=== PATIENT | female | born 1945 | race African-American/Black ===

== ENCOUNTER 2016-12-06 08:07 | Day surgery (SDC) | payer OTHER ==
[~2016-12-06] VITALS: Ht 160 cm; Wt 80.7 kg
[2016-12-06 08:50] VITALS: BP 120/74
[2016-12-06 13:53] VITALS: BP 124/69
== END 2016-12-06 12:25 | disposition home or self-care (01) ==
LOC: GI 08:07 → OR 12:30
PROVIDERS: Internal Medicine Gastroenterology
PROC: 0DJD8ZZ Inspection of Lower Intestinal Tract, Via Natural or Artificial Opening Endoscopic (ICD-10-PCS; principal; 2016-12-06 09:30)
DX: R19.4 Change in bowel habit (principal); R10.9 Unspecified abdominal pain
CPT/HCPCS: 45378; J1200; J1610; J2250; J2310; J3010; J3490

== ENCOUNTER → 2017-01-08 | Outpatient (CLI) | payer OTHER ==
[2017-01-08 08:48] LABS: BASOPHIL % 0.5 % (0-2); PLATELET COUNT 192 x10^3mcL (130-400)
[2017-01-08 08:50] LABS: ALKALINE PHOSPHATASE 86 U/L (46-116); ALT/SGPT 71 U/L (14-59); AST/SGOT 27 U/L (15-37); BILIRUBIN TOTAL 0.47 mg/dL (0.20-1.00); CALCIUM 9.4 mg/dL (8.5-10.1); CARBON DIOXIDE 26.4 mmol/L (21-32); CHLORIDE SERUM 101 mmol/L (98-107); CREATININE SERUM 0.7 mg/dL (0.6-1.0); FREE T4 1.09 ng/dL (0.76-1.46); GLUCOSE SERUM 121 mg/dL (74-106); POTASSIUM SERUM 4.5 mmol/L (3.5-5.1); SODIUM SERUM 136 mmol/L (136-145); TOTAL PROTEIN, SERUM 7.8 g/dL (6.4-8.2)
[2017-01-08 09:39] LABS: RED CELL DISTRIBUTION WIDTH 14.8 % (11.5-14.5)
== END | disposition home or self-care (01) ==
LOC: LB 08:06
DX: E11.9 Type 2 diabetes mellitus without complications (principal); E03.8 Other specified hypothyroidism; I10 Essential (primary) hypertension
CPT/HCPCS: 84439

== ENCOUNTER → 2017-02-21 | Outpatient (CLI) | payer OTHER | END | disposition home or self-care (01) | LOC: CT 09:19 | PROC: BN25ZZZ Computerized Tomography (CT Scan) of Facial Bones (ICD-10-PCS; principal; 2017-02-21) | PROC: BN26ZZZ Computerized Tomography (CT Scan) of Mandible (ICD-10-PCS; 2017-02-21) | DX: M27.69 Other endosseous dental implant failure (principal) ==

== ENCOUNTER → 2017-05-01 | Outpatient (CLI) | payer OTHER ==
[2017-05-01 12:57] LABS: URIC ACID 5.5 mg/dL (2.6-6.0)
[2017-05-01 13:11] LABS: C REACTIVE PROTEIN < 0.2 mg/dL (<=0.9)
== END | disposition home or self-care (01) ==
LOC: RD 11:19
PROVIDERS: Family Medicine
DX: S69.90XA Unspecified injury of unspecified wrist, hand and finger(s), initial encounter (principal); X58.XXXA Exposure to other specified factors, initial encounter; Y92.9 Unspecified place or not applicable

== ENCOUNTER → 2018-08-30 | Outpatient (CLI) | payer OTHER | END | disposition home or self-care (01) | LOC: LB 08:12 | DX: N39.46 Mixed incontinence (principal); N32.81 Overactive bladder; N31.8 Other neuromuscular dysfunction of bladder ==

== ENCOUNTER → 2019-06-07 | Outpatient (CLI) | payer OTHER ==
[2019-06-07 08:12] LABS: BASOPHIL % 0.6 % (0-2); PLATELET COUNT 182 x10^3mcL (130-400)
[2019-06-07 08:27] LABS: RED CELL DISTRIBUTION WIDTH 15.2 % (11.5-14.5)
[2019-06-07 08:40] LABS: ALBUMIN 3.8 g/dL (3.4-5.0); ALKALINE PHOSPHATASE 86 U/L (46-116); ALT/SGPT 48 U/L (14-59); AST/SGOT 21 U/L (15-37); BILIRUBIN TOTAL 0.4 mg/dL (0.20-1.00); CALCIUM 8.9 mg/dL (8.5-10.1); CARBON DIOXIDE 26.1 mmol/L (21-32); CHLORIDE SERUM 105 mmol/L (98-107); CHOLESTEROL 139 mg/dL (<200); CHOLESTEROL/HDL RATIO 2.6; CREATININE SERUM 0.7 mg/dL (0.6-1.0); HDL CHOLESTEROL 54 mg/dL (40-60); POTASSIUM SERUM 3.9 mmol/L (3.5-5.1); SODIUM SERUM 142 mmol/L (136-145); TOTAL PROTEIN, SERUM 7.6 g/dL (6.4-8.2); TRIGLYCERIDES 60 mg/dL (<150)
[2019-06-07 08:44] LABS: GLUCOSE SERUM 58 mg/dL (74-106)
== END | disposition home or self-care (01) ==
LOC: LB 07:47
DX: E11.9 Type 2 diabetes mellitus without complications (principal); E66.01 Morbid (severe) obesity due to excess calories; I10 Essential (primary) hypertension; E78.2 Mixed hyperlipidemia

== ENCOUNTER → 2019-09-10 | Outpatient (CLI) | payer OTHER | END | disposition home or self-care (01) | LOC: CT 08:36 | PROC: BW211ZZ Computerized Tomography (CT Scan) of Abdomen and Pelvis using Low Osmolar Contrast (ICD-10-PCS; principal; 2019-09-10) | DX: Z01.818 Encounter for other preprocedural examination (principal) | CPT/HCPCS: Q9967 ==

== ENCOUNTER → 2019-10-02 | Outpatient (CLI) | payer OTHER ==
[2019-10-02 09:14] LABS: PLATELET COUNT 179 x10^3mcL (130-400); RED CELL DISTRIBUTION WIDTH 15.1 % (11.5-14.5)
[2019-10-02 09:41] LABS: CHOLESTEROL/HDL RATIO 2.4
[2019-10-02 11:50] LABS: ALBUMIN 3.7 g/dL (3.4-5.0); ALKALINE PHOSPHATASE 70 U/L (46-116); ALT/SGPT 91 U/L (14-59); AST/SGOT 37 U/L (15-37); BILIRUBIN TOTAL 0.31 mg/dL (0.20-1.00); CALCIUM 9.2 mg/dL (8.5-10.1); CARBON DIOXIDE 25.2 mmol/L (21-32); CHLORIDE SERUM 105 mmol/L (98-107); CREATININE SERUM 0.6 mg/dL (0.6-1.0); FREE T4 1.12 ng/dL (0.76-1.46); GLUCOSE SERUM 116 mg/dL (74-106); POTASSIUM SERUM 4.1 mmol/L (3.5-5.1); SODIUM SERUM 140 mmol/L (136-145); TOTAL PROTEIN, SERUM 6.8 g/dL (6.4-8.2)
== END | disposition home or self-care (01) ==
LOC: LB 08:39
DX: E11.9 Type 2 diabetes mellitus without complications (principal); I10 Essential (primary) hypertension; E78.2 Mixed hyperlipidemia; E03.8 Other specified hypothyroidism; E66.01 Morbid (severe) obesity due to excess calories
CPT/HCPCS: 84439

== ENCOUNTER → 2019-11-01 | Outpatient (CLI) | payer OTHER | END | disposition home or self-care (01) | LOC: LB 09:29 | DX: N32.81 Overactive bladder (principal); N31.8 Other neuromuscular dysfunction of bladder; N39.46 Mixed incontinence ==

== ENCOUNTER → 2019-11-08 | Outpatient (CLI) | payer OTHER ==
[2019-11-08 08:46] LABS: ALBUMIN 4.1 g/dL (3.4-5.0); ALKALINE PHOSPHATASE 76 U/L (46-116); ALT/SGPT 63 U/L (14-59); AST/SGOT 24 U/L (15-37); BILIRUBIN TOTAL 0.5 mg/dL (0.20-1.00); CALCIUM 9.5 mg/dL (8.5-10.1); CARBON DIOXIDE 23.6 mmol/L (21-32); CHLORIDE SERUM 104 mmol/L (98-107); CREATININE SERUM 0.9 mg/dL (0.6-1.0); GLUCOSE SERUM 75 mg/dL (74-106); POTASSIUM SERUM 4.2 mmol/L (3.5-5.1); SODIUM SERUM 137 mmol/L (136-145); TOTAL PROTEIN, SERUM 7.8 g/dL (6.4-8.2)
== END | disposition home or self-care (01) ==
LOC: US 07:47
DX: R74.0 Nonspecific elevation of levels of transaminase and lactic acid dehydrogenase [LDH] (principal)

== ENCOUNTER → 2020-04-14 | Outpatient (CLI) | payer OTHER | END | disposition home or self-care (01) | LOC: LB 12:22 | PROVIDERS: ATTEND Urology | DX: N32.81 Overactive bladder (principal); N31.8 Other neuromuscular dysfunction of bladder; N39.46 Mixed incontinence ==